=== PATIENT | female | born 2000 | race Caucasian/White ===

== ENCOUNTER 2020-12-14 06:59 | Inpatient (IN) ==
[2020-12-14] MEDS ORDERED: OXYTOCIN 30 UNITS/500 ML BAG IV PRN ×2 (07:12→10:21)
--- NOTE | 2020-12-14 07:27 | History & Physical Report ---
Date of Service December 14, 2020 Assessment & Plan (1) SROM (spontaneous rupture of membranes): (2) with 38 completed weeks gestation: (3) GBS (group B Streptococcus carrier), +RV culture, currently : Plan: Admit. Plan initially to expectantly manage. Fetus category one and reassuring. +PCN for GBS positive. Anticipate . History of Present Illness Chief Complaint: rom and contractions Primary Care Provider: NO PCP Patient is a 20yof at 38 3/7 weeks who presents to labor and delivery compl aining of contractions since 7pm last night and then rom this am. Patient arrives to labor and delivery in a wheelchair sitting in a puddle Looks uncomfortable with contractions. +fm. has been essentially uncomplicated. On anatomy us thickened nuchal fold and left choroid plexus cyst seen. Had MFM consult where cyst was not seen and low risk panorama. Declined amnio. labs--O-/ab-/ri/rprnr/hepb-/hiv-/gc/ct-/cf/sma neg/gtt nl x 2/low risk panorama/gbs + Allergies Allergy/AdvReac Type Severity Reaction Status Date / Time No Known Allergies Allergy Verified 12/12/20 15:15 Home Medications Medication Instructions Recorded Confirmed Type diphenhydramine HCl 50 mg capsule 50 mg PO HS 12/14/20 12/14/20 History ([facility]) prenat.vits,kriss,ilb-suyu-fdlhj 1 tab PO DAILY 12/14/20 12/14/20 History Patient History Medical History Asthma Surgical History S/P excision of lipoma removed from lower lip Family History (Updated 06/03/20 @ 09:00 by Karena Ann) Sister Sickle cell disease Grandfather (Paternal) Diabetes Denies family history of Ovarian cancer Breast cancer Colorectal cancer Social History Smoking Status: Never smoker Hx Alcohol Use: No Hx Substance Use: No Preferred Language: Stateless Communication Ability: Effective 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 noncontributory Physical Exam Constitutional: WD/WN, vitals as above Gastrointestinal (Abdomen): soft, gravid Psychiatric: A+Ox3, euthymic affect Genitourinary: cx--1.5/75/-2 grossly ruptured, probable mec toco--q2-4min efm--category one strip Results & Data ([facility]) Vital Signs (Past 12 Hours) Vital Signs Temp Pulse Resp BP 12/14/20 07:16 37.0 C 85 18 116/70 Code Status & VTE Plan VTE Prophylaxis Plan VTE Prophylaxis will be ordered: No Coding Level of Care Code None Diagnoses SROM (spontaneous rupture of membranes) with 38 completed weeks gestation Z3A.38 GBS (group B Streptococcus carrier), +RV culture, currently O99.820
[2020-12-14] MEDS ORDERED: PENICILLIN G POTASSIUM 6 MU in DEXTROSE 5% 250 ML IV ONE (07:30)
[2020-12-14 07:34] LABS: Hematocrit (blood only) 34.2 % (37-47); Hemoglobin 11.7 g/dL (12.0-16.0); Mean Corpuscular Hemoglobin 29.3 pg (25-34); Mean Corpuscular Hgb Conc 34.2 g/dL (32-36); Mean Corpuscular Volume 85.5 fL (80-100); Mean Platelet Volume 11.1 fL (7.4-10.4); Platelet Count 165 K/uL (130-400); RDW Coefficient of Variation 14.8 % (11.5-14.5); RDW Standard Deviation 45.7 fL (36.4-46.3); White Blood Count 11.35 K/uL (4.8-10.8)
[2020-12-14] MEDS: LACTATED RINGER'S 1,000 ML IV PRN ×5 (08:14→22:39)
--- NOTE | 2020-12-14 11:12 | Labor Progress Brief Note ---
Date of Service December 14, 2020 Subjective Reason For Note: Routine Evaluation Current Pain Level(1-10): 8 Assessment & Plan (1) SROM (spontaneous rupture of membranes): Plan: Cervix unchanged. Will start oxytocin (2) with 38 completed weeks gestation: (3) GBS (group B Streptococcus carrier), +RV culture, currently : Plan: Admit. Plan initially to expectantly manage. Fetus category one and reassuring. +PCN for GBS positive. Anticipate . Admission and Anticipated Discharge Date Admission Date: December 14, 2020 Physical Exam Genitourinary: Manual OB Exam: + cervical dilation (1.5), + cervical effacement 70% and + station -2 OB Exam Monitor Tracing: + external FHT monitor used, + external uterine monitor used, + category I and + normal FHT variability Results & Data ([facility]) Vital Signs (Past 12 Hours) Vital Signs Temp Pulse Resp BP 12/14/20 10:42 36.6 C 70 20 104/61 12/14/20 09:03 36.6 C 12/14/20 07:26 37.0 C 18 12/14/20 07:16 37.0 C 85 18 116/70 Coding Level of Care Code None Diagnoses SROM (spontaneous rupture of membranes) with 38 completed weeks gestation Z3A.38 GBS (group B Streptococcus carrier), +RV culture, currently O99.820
--- NOTE | 2020-12-14 11:15 | Anesthesiology Consultation ---
Date of Service December 14, 2020 Assessment & Plan Chart Review Chart Review: Acceptable Risk for Surgery and Patient NOT seen in Pre Admission Testing Consults Requested none ASA ASA2 Proposed Anesthesia Anesthesia Type: Labor Epidural History Height/Weight Height: 4 ft 11 in Weight: 59.874 kg Allergies Allergy/AdvReac Type Severity Reaction Status Date / Time No Known Allergies Allergy Verified 12/12/20 15:15 Medications Home Medications Medication Instructions Recorded Confirmed Last Taken diphenhydramine HCl 50 mg capsule 50 mg PO HS 12/14/20 12/14/20 12/13/20 ([facility]) prenat.vits,kriss,rji-kwlb-jekfz 1 tab PO DAILY 12/14/20 12/14/20 12/13/20 Active Medications Generic Name Dose Route Start Last Admin Trade Name Freq PRN Reason Stop Dose Admin Lactated Ringer's 1,000 mls @ 125 mls/hr 12/14/20 07:12 12/14/20 08:14 Lr IV 12/16/20 07:11 125 mls/hr .Q8H PRN Administration L&D Protocol Protocol Oxytocin 30 units in 500 mls @ 2 mls/hr 12/14/20 10:21 12/14/20 10:42 Pitocin IV 12/16/20 10:20 0.12 units/hr .Q24H PRN 2 mls/hr Labor Induction/Augmentation Administration Protocol 0.12 UNITS/HR Past Medical History Medical History Asthma Exercise / Class Metabolic Activity II 4-5 Yardwork/Stairs/Walk up hill Past Family History Family History Sister Sickle cell disease Grandfather (Paternal) Diabetes Denies family history of Ovarian cancer Breast cancer Colorectal cancer Past Surgical History Surgical History S/P excision of lipoma removed from lower lip Past Anesthesia History No Hx of Anesthesia Complications and No Family Hx of Anesthesia Complications History of PONV No Hx of PONV and No Hx of Motion Sickness Social History Smoking Status: Never smoker Hx Alcohol Use: No Hx Substance Use: No Physical Exam Vital Signs Last Vital Signs Temp 36.6 C 12/14/20 10:42 Pulse 70 12/14/20 10:42 Resp 20 12/14/20 10:42 BP 104/61 12/14/20 10:42 Testing Laboratory Results 12/14/20 07:26
[2020-12-14] MEDS: PENICILLIN G POTASSIUM 3 MU in DEXTROSE 5% 100 ML IV PRN ×3 (12:16→20:14)
[2020-12-14] MEDS ORDERED: ePHEDrine sulfate 50 MG/ML AMP ONE (12:20)
[2020-12-14] MEDS ORDERED: BUPIVACAINE 0.25% 30 ML VIAL ONE (12:21)
[2020-12-14] MEDS ORDERED: SODIUM CHLORIDE 0.9% INJ 10 ML VIAL ONE (12:21)
[2020-12-14] MEDS ORDERED: fentaNYL citrate 100 MCG/2 ML VIAL ONE (12:21)
[2020-12-14] MEDS ORDERED: fentaNYL 2MCG/ML ROPIVACAINE 1.25MG/ML 100 ML BAG EPI ONE (12:23)
[2020-12-14] MEDS ORDERED: NALBUPHINE HCL INJ 10 MG/ML AMP IV PRN (13:43)
[2020-12-14] MEDS ORDERED: ePHEDrine sulfate 50 MG/ML AMP IV PRN (13:43)
[2020-12-14] MEDS ORDERED: PROMETHAZINE HCL 25 MG in SODIUM CHLORIDE 0.9% 50 ML IV PRN (13:43)
[2020-12-14] MEDS ORDERED: ONDANSETRON INJ 2 MG/ML 2 ML VIAL IV PRN (13:43)
[2020-12-14] MEDS ORDERED: NALOXONE HCL 1 MG in SODIUM CHLORIDE 0.9% 1000ML 1,000 ML IV PRN (13:43)
[2020-12-14] MEDS ORDERED: NALOXONE HCL 0.4 MG/1 ML VIAL/CARP IV PRN (13:43)
[2020-12-14] MEDS ORDERED: diphenhydrAMINE 50 MG/ML VIAL IV PRN (13:43)
--- NOTE | 2020-12-14 14:52 | Labor Progress Brief Note ---
Date of Service December 14, 2020 Subjective Reason For Note: Routine Evaluation Assessment & Plan (1) SROM (spontaneous rupture of membranes): Plan: Progressing. Continue Pitocin. Epidural in place (2) with 38 completed weeks gestation: (3) GBS (group B Streptococcus carrier), +RV culture, currently : (4) Need for rhogam due to Rh negative mother: (5) Supervision of normal first : Admission and Anticipated Discharge Date Admission Date: December 14, 2020 Physical Exam Genitourinary: Manual OB Exam: + cervical dilation 4 cm, + cervical effacement 80%, + station -1 and + amniotic fluid meconium Results & Data ([facility]) Vital Signs (Past 12 Hours) Vital Signs Temp Pulse Resp BP Pulse Ox 12/14/20 14:46 80 131/59 L 12/14/20 14:45 105 H 100 12/14/20 14:40 75 120/57 L 97 12/14/20 14:36 70 106/57 L 12/14/20 14:35 72 99 12/14/20 14:30 83 95/50 L 100 12/14/20 14:26 78 102/56 L 12/14/20 14:25 85 98 12/14/20 14:20 94 H 104/53 L 100 12/14/20 14:16 85 104/51 L 12/14/20 14:15 105 H 100 12/14/20 14:10 94 H 111/55 L 99 12/14/20 14:05 102 H 108/55 L 99 12/14/20 14:00 88 104/58 L 100 12/14/20 13:55 92 H 100 12/14/20 13:53 103 H 100/57 L 12/14/20 13:51 79 105/57 L 12/14/20 13:50 98 H 100 12/14/20 13:49 75 112/62 12/14/20 13:47 85 102/59 L 12/14/20 13:45 83 98/54 L 100 12/14/20 13:44 81 103/56 L 12/14/20 13:41 81 97/54 L 12/14/20 13:40 88 113/53 L 100 12/14/20 13:35 85 111/64 100 12/14/20 13:33 74 114/57 L 12/14/20 13:32 71 118/62 08/04/21 13:30 80 100 12/14/20 13:29 72 98/59 L 12/14/20 13:27 92 H 106/62 12/14/20 13:25 87 100 12/14/20 13:20 89 100 12/14/20 13:15 86 100 12/14/20 13:10 76 100 12/14/20 13:05 87 100 12/14/20 13:00 90 100 12/14/20 12:55 104 H 100 12/14/20 12:50 75 100 12/14/20 12:49 36.5 C 67 20 125/76 12/14/20 12:45 76 100 12/14/20 12:40 72 99 12/14/20 11:35 68 18 109/67 12/14/20 10:42 36.6 C 70 20 104/61 12/14/20 09:03 36.6 C 12/14/20 07:26 37.0 C 18 12/14/20 07:16 37.0 C 85 18 116/70 Coding Level of Care Code None Diagnoses SROM (spontaneous rupture of membranes) with 38 completed weeks gestation Z3A.38 GBS (group B Streptococcus carrier), +RV culture, currently O99.820 Need for rhogam due to Rh negative mother Z29.13 Supervision of normal first Z34.00
--- NOTE | 2020-12-14 18:03 | Labor Progress Brief Note ---
Date of Service December 14, 2020 Subjective Reason For Note: Routine Evaluation Assessment & Plan (1) SROM (spontaneous rupture of membranes): Plan: Progressing. Continue Pitocin. Epidural in place, IUPC placed for dysfunctional contraction pattern. (2) with 38 completed weeks gestation: (3) GBS (group B Streptococcus carrier), +RV culture, currently : (4) Need for rhogam due to Rh negative mother: (5) Supervision of normal first : Admission and Anticipated Discharge Date Admission Date: December 14, 2020 Physical Exam Genitourinary: Manual OB Exam: + cervical dilation 6 cm, + cervical effacement 90%, + station 0 and + amniotic fluid meconium IUPC placed Results & Data ([facility]) Vital Signs (Past 12 Hours) Vital Signs Temp Pulse Resp BP Pulse Ox 12/14/20 17:55 73 100 12/14/20 17:50 73 100 12/14/20 17:45 72 100 12/14/20 17:42 64 105/64 12/14/20 17:40 63 100 12/14/20 17:35 69 100 12/14/20 17:30 71 100 12/14/20 17:27 69 110/64 12/14/20 17:25 68 100 12/14/20 17:20 70 100 12/14/20 17:15 70 100 12/14/20 17:11 72 125/58 L 12/14/20 17:10 74 100 12/14/20 17:05 67 100 12/14/20 17:00 108 H 100 12/14/20 16:57 68 109/60 12/14/20 16:55 72 100 12/14/20 16:50 72 100 12/14/20 16:45 80 100 12/14/20 16:42 73 109/61 12/14/20 16:40 65 100 12/14/20 16:35 76 100 12/14/20 16:30 76 100 12/14/20 16:26 36.8 C 77 20 108/62 12/14/20 16:25 82 100 12/14/20 16:20 69 100 12/14/20 16:15 64 100 12/14/20 16:12 66 123/56 L 12/14/20 16:10 65 99 12/14/20 16:05 66 99 12/14/20 16:00 67 100 12/14/20 15:58 74 18 110/62 12/14/20 15:55 66 99 12/14/20 15:50 69 100 12/14/20 15:45 72 99 12/14/20 15:42 69 116/63 12/14/20 15:40 70 99 12/14/20 15:35 68 99 12/14/20 15:30 68 98 12/14/20 15:27 69 114/60 12/14/20 15:25 66 98 12/14/20 15:20 73 99 12/14/20 15:18 93 H 18 143/92 H 12/14/20 15:15 74 100 12/14/20 15:10 84 100 12/14/20 15:05 73 100 12/14/20 15:00 36.6 C 82 18 100 12/14/20 14:56 36.6 C 16 12/14/20 14:55 72 134/63 100 12/14/20 14:50 79 106/58 L 100 12/14/20 14:46 80 131/59 L 12/14/20 14:45 105 H 100 12/14/20 14:40 75 120/57 L 97 12/14/20 14:36 70 106/57 L 12/14/20 14:35 72 99 12/14/20 14:30 83 18 95/50 L 100 12/14/20 14:26 78 102/56 L 12/14/20 14:25 85 98 12/14/20 14:20 94 H 104/53 L 100 12/14/20 14:16 85 104/51 L 12/14/20 14:15 105 H 100 12/14/20 14:10 94 H 111/55 L 99 12/14/20 14:05 102 H 18 108/55 L 99 12/14/20 14:00 88 18 104/58 L 100 12/14/20 13:55 92 H 100 12/14/20 13:53 103 H 100/57 L 12/14/20 13:51 79 105/57 L 12/14/20 13:50 98 H 100 12/14/20 13:49 75 18 112/62 12/14/20 13:47 85 18 102/59 L 12/14/20 13:45 83 18 98/54 L 100 12/14/20 13:44 81 18 103/56 L 12/14/20 13:41 81 18 97/54 L 12/14/20 13:40 88 18 113/53 L 100 12/14/20 13:35 85 18 111/64 100 12/14/20 13:33 74 18 114/57 L 12/14/20 13:32 71 18 118/62 12/14/20 13:30 80 100 12/14/20 13:29 72 18 98/59 L 12/14/20 13:27 92 H 18 106/62 12/14/20 13:25 87 100 12/14/20 13:20 89 100 12/14/20 13:15 86 100 12/14/20 13:10 76 100 12/14/20 13:05 87 100 12/14/20 13:00 90 100 12/14/20 12:55 104 H 100 12/14/20 12:50 75 100 12/14/20 12:49 36.5 C 67 20 125/76 12/14/20 12:45 76 100 12/14/20 12:40 72 99 12/14/20 11:35 68 18 109/67 12/14/20 10:42 36.6 C 70 20 104/61 12/14/20 09:03 36.6 C 12/14/20 07:26 37.0 C 18 12/14/20 07:16 37.0 C 85 18 116/70 Coding Level of Care Code None Diagnoses SROM (spontaneous rupture of membranes) with 38 completed weeks gestation Z3A.38 GBS (group B Streptococcus carrier), +RV culture, currently O99.820 Need for rhogam due to Rh negative mother Z29.13 Supervision of normal first Z34.00
[2020-12-14] MEDS: fentaNYL 2MCG/ML ROPIVACAINE 1.25MG/ML 100 ML BAG EPI PRN (21:54)
--- NOTE | 2020-12-14 22:36 | Labor Progress Brief Note ---
Date of Service December 14, 2020 Subjective Reason For Note: Routine Evaluation Pitocin d/denisse for 3-4 min decel in to the 90s. Has recovered. Cat 1 with periods of cat 2 prior. Assessment & Plan (1) SROM (spontaneous rupture of membranes): Plan: Progressing, Pitocin D/denisse for 3-4 decel. Has recovered and will continue to monitor. (2) with 38 completed weeks gestation: (3) GBS (group B Streptococcus carrier), +RV culture, currently : (4) Encounter for anatomic survey: Admission and Anticipated Discharge Date Admission Date: December 14, 2020 Physical Exam Genitourinary: Manual OB Exam: + cervical dilation 8 cm, + cervical effacement 90%, + station 0 and + amniotic fluid meconium Results & Data ([facility]) Vital Signs (Past 12 Hours) Vital Signs Temp Pulse Resp BP Pulse Ox 12/14/20 22:30 94 H 100 12/14/20 22:26 81 115/57 L 12/14/20 22:25 86 100 12/14/20 22:20 87 100 12/14/20 22:15 94 H 99 12/14/20 22:12 89 130/60 12/14/20 22:10 98 H 100 12/14/20 22:05 84 98 12/14/20 22:00 84 100 12/14/20 21:57 82 113/61 12/14/20 21:55 87 100 12/14/20 21:50 84 100 12/14/20 21:45 81 100 12/14/20 21:42 89 97/57 L 12/14/20 21:40 87 100 12/14/20 21:35 87 100 12/14/20 21:30 90 100 12/14/20 21:26 81 101/57 L 12/14/20 21:25 79 100 12/14/20 21:20 75 100 12/14/20 21:15 89 100 12/14/20 21:12 79 98/59 L 12/14/20 21:10 78 100 12/14/20 21:05 87 100 12/14/20 21:00 36.7 C 103 H 18 100 12/14/20 20:56 90 118/67 12/14/20 20:55 90 100 12/14/20 20:50 105 H 100 12/14/20 20:45 81 100 12/14/20 20:41 101 H 115/66 12/14/20 20:40 89 100 12/14/20 20:35 139 H 100 12/14/20 20:30 79 100 12/14/20 20:26 84 112/59 L 12/14/20 20:25 97 H 100 12/14/20 20:20 95 H 100 12/14/20 20:15 115 H 100 12/14/20 20:12 86 109/70 12/14/20 20:10 102 H 100 12/14/20 20:05 79 100 12/14/20 20:00 80 100 12/14/20 19:58 68 109/64 12/14/20 19:55 97 H 100 12/14/20 19:50 86 100 12/14/20 19:45 75 100 12/14/20 19:41 72 117/67 12/14/20 19:40 72 100 12/14/20 19:35 72 100 12/14/20 19:30 97 H 100 12/14/20 19:27 81 109/67 12/14/20 19:25 78 100 12/14/20 19:20 88 100 12/14/20 19:15 86 98 12/14/20 19:12 118 H 116/57 L 12/14/20 19:10 123 H 100 12/14/20 19:05 36.7 C 76 18 100 12/14/20 19:00 76 100 12/14/20 18:56 84 100/60 12/14/20 18:55 70 100 12/14/20 18:50 76 100 12/14/20 18:45 77 100 12/14/20 18:42 76 108/58 L 12/14/20 18:40 71 100 12/14/20 18:35 72 100 12/14/20 18:30 69 100 12/14/20 18:27 68 106/61 12/14/20 18:25 77 100 12/14/20 18:20 73 100 12/14/20 18:15 71 100 12/14/20 18:11 72 103/56 L 12/14/20 18:10 69 100 12/14/20 18:05 73 100 12/14/20 18:02 72 101/52 L 12/14/20 18:00 75 100 12/14/20 17:55 73 100 12/14/20 17:50 73 100 12/14/20 17:45 72 100 12/14/20 17:42 64 105/64 12/14/20 17:40 63 100 12/14/20 17:35 69 100 12/14/20 17:30 71 100 12/14/20 17:27 69 110/64 12/14/20 17:25 68 100 12/14/20 17:20 70 100 12/14/20 17:15 70 100 12/14/20 17:11 72 125/58 L 12/14/20 17:10 74 100 12/14/20 17:05 67 100 12/14/20 17:00 108 H 100 12/14/20 16:57 68 109/60 12/14/20 16:55 72 100 12/14/20 16:50 72 100 12/14/20 16:45 80 100 12/14/20 16:42 73 109/61 12/14/20 16:40 65 100 12/14/20 16:35 76 100 12/14/20 16:30 76 100 12/14/20 16:26 36.8 C 77 20 108/62 12/14/20 16:25 82 100 12/14/20 16:20 69 100 12/14/20 16:15 64 100 12/14/20 16:12 66 123/56 L 12/14/20 16:10 65 99 12/14/20 16:05 66 99 12/14/20 16:00 67 100 12/14/20 15:58 74 18 110/62 12/14/20 15:55 66 99 12/14/20 15:50 69 100 12/14/20 15:45 72 99 12/14/20 15:42 69 116/63 12/14/20 15:40 70 99 12/14/20 15:35 68 99 12/14/20 15:30 68 98 12/14/20 15:27 69 114/60 12/14/20 15:25 66 98 12/14/20 15:20 73 99 12/14/20 15:18 93 H 18 143/92 H 12/14/20 15:15 74 100 12/14/20 15:10 84 100 12/14/20 15:05 73 100 12/14/20 15:00 36.6 C 82 18 100 12/14/20 14:56 36.6 C 16 12/14/20 14:55 72 134/63 100 12/14/20 14:50 79 106/58 L 100 12/14/20 14:46 80 131/59 L 12/14/20 14:45 105 H 100 12/14/20 14:40 75 120/57 L 97 12/14/20 14:36 70 106/57 L 12/14/20 14:35 72 99 12/14/20 14:30 83 18 95/50 L 100 12/14/20 14:26 78 102/56 L 12/14/20 14:25 85 98 12/14/20 14:20 94 H 104/53 L 100 12/14/20 14:16 85 104/51 L 12/14/20 14:15 105 H 100 12/14/20 14:10 94 H 111/55 L 99 12/14/20 14:05 102 H 18 108/55 L 99 12/14/20 14:00 88 18 104/58 L 100 12/14/20 13:55 92 H 100 12/14/20 13:53 103 H 100/57 L 12/14/20 13:51 79 105/57 L 12/14/20 13:50 98 H 100 12/14/20 13:49 75 18 112/62 12/14/20 13:47 85 18 102/59 L 12/14/20 13:45 83 18 98/54 L 100 12/14/20 13:44 81 18 103/56 L 12/14/20 13:41 81 18 97/54 L 12/14/20 13:40 88 18 113/53 L 100 12/14/20 13:35 85 18 111/64 100 12/14/20 13:33 74 18 114/57 L 12/14/20 13:32 71 18 118/62 12/14/20 13:30 80 100 12/14/20 13:29 72 18 98/59 L 12/14/20 13:27 92 H 18 106/62 12/14/20 13:25 87 100 12/14/20 13:20 89 100 12/14/20 13:15 86 100 12/14/20 13:10 76 100 12/14/20 13:05 87 100 12/14/20 13:00 90 100 12/14/20 12:55 104 H 100 12/14/20 12:50 75 100 12/14/20 12:49 36.5 C 67 20 125/76 12/14/20 12:45 76 100 12/14/20 12:40 72 99 12/14/20 11:35 68 18 109/67 12/14/20 10:42 36.6 C 70 20 104/61 Coding Level of Care Code None Diagnoses SROM (spontaneous rupture of membranes) with 38 completed weeks gestation Z3A.38 GBS (group B Streptococcus carrier), +RV culture, currently O99.820 Encounter for anatomic survey Z36.89
[2020-12-15] MEDS: PENICILLIN G POTASSIUM 3 MU in DEXTROSE 5% 100 ML IV PRN ×3 (00:04→07:55)
[2020-12-15] MEDS: fentaNYL 2MCG/ML ROPIVACAINE 1.25MG/ML 100 ML BAG EPI PRN (04:28)
[2020-12-15] MEDS: LACTATED RINGER'S 1,000 ML IV PRN (06:46)
--- NOTE | 2020-12-15 09:16 | Delivery Summary ---
Vaginal Delivery Summary Date of Service December 15, 2020 Vaginal Delivery Summary PREOPERATIVE DIAGNOSIS: 1. Single intrauterine at 38 4/7 wga 2. Spontaneous rupture of membranes 3. GBS+ POSTOPERATIVE DIAGNOSIS: 1. Single intrauterine at 38 4/7 wga 2. Spontaneous rupture of membranes 3. GBS+ 4. Delivered PROCEDURE: 1. Normal spontaneous vaginal delivery. SURGEON: Mara Qureshi MD ANESTHESIA: Epidural. ESTIMATED BLOOD LOSS: 300 mL FLUIDS: Continuous LR. URINE OUTPUT: None. COMPLICATIONS: Shoulder dystocia CONDITION: Stable. INDICATIONS: 20 y/o G1 at 38 4/7 wga presented yesterday morning w/ complaints of LOF and found to be ruptured. She was expectantly managed initially but did not make change and so was started on pitocin. She received penicillin for GBS+ status. She received an epidural for pain control. Overnight pitocin had to be stopped intermittently due to tachysystole however continued to progress until she was complete. Pitocin was restarted when she began pushing and fetus tolerated it well FINDINGS: A viable male with Apgars of 8 and 9 at 1 and 5 minutes respectively. SPECIMEN: Cord gases, cord blood OPERATIVE REPORT: The patient progressed to 10 cm, 100% effaced and +2 station, pushed over intact perineum with anesthesia to deliver a viable male , Apgars as above. Head of delivered in CATHY position. No nuchal cord was present. Body and shoulders did not deliver with gentle downward traction of the shoulder and dystocia was called. Head of bed was laid down and legs were placed into Lory position. Suprapubic pressure was applied and shoulder did then deliver spontaneously with remainder of body delivering easily. was initially stunned but became vigorous and so delivered to maternal abdomen and nursing staff. Cord was clamped and cut. Cord segment for gases and blood were obtained. Placenta delivered spontaneously intact with 3-vessel cord. IV oxytocin and fundal massage were given for excellent hemostasis. Vagina, cervix, perineum, and placenta were inspected. A right vaginal and a periurethral laceration were noted and repaired in the usual fashion using 3-0 and 4-0 vicryl respectively. There was excellent hemostasis. Sponge and needle counts correct x2. No sponges were left behind. Mother and stable in immediate period. [facility] [place] Delivery Charge Vaginal Delivery Codes: 89995 global code for the antepartum, delivery, and post- Delivery Type Details:
[2020-12-15] MEDS ORDERED: HYDROCORTISONE ACETATE 25 MG SUPP PR PRN (09:32)
[2020-12-15] MEDS ORDERED: DIPHTHERIA/TETANUS/PERTUSSIS 0.5 ML SYR/VIAL IM ONE (09:32)
[2020-12-15] MEDS ORDERED: SUPERCREAM 0.870% 15 GM JAR EXT PRN (09:32)
[2020-12-15] MEDS ORDERED: BENZOCAINE 20% AER SPR 82.5 GM CAN EXT PRN (09:32)
[2020-12-15] MEDS ORDERED: OXYTOCIN 30 UNITS/500 ML BAG IV PRN (09:32)
[2020-12-15] MEDS ORDERED: ACETAMINOPHEN 325 MG TAB PO PRN (09:32)
[2020-12-15] MEDS ORDERED: bisacodyL 10 MG SUPP PR PRN (09:32)
--- NOTE | 2020-12-15 11:15 | Anesthesia Procedure Note ---
Date of Service December 15, 2020 Anesthesia Post Epidural Note Vital Signs Vital Signs: Temp Pulse Resp BP Pulse Ox 98.8 F 94 H 18 125/58 L 100 12/15/20 05:04 12/15/20 10:58 12/15/20 05:04 12/15/20 10:58 12/15/20 09:10 Pain Intensity Back: Pain Intensity: 10 Notes Mental Status: alert / awake / arousable and participated in evaluation Nausea / Vomiting: adequately controlled Pain: adequately controlled Airway Patency, RR, SpO2: stable & adequate BP & HR: stable & adequate Hydration State: stable & adequate Neuraxial Anesthesia: was administered and sensory block is resolving Anesthetic Complications: no major complications apparent and Pt Satisfied with anesthetic care Epidural: Removed without complications and With tip intact
[2020-12-15] MEDS: IBUPROFEN 600 MG TAB PO PRN ×2 (19:53→23:47)
[2020-12-15] MEDS: DOCUSATE SODIUM 100 MG CAP PO SCH (20:23)
--- NOTE | 2020-12-16 07:04 | Obstetrical Progress Note ---
Date of Service <Melita Seymour DO - Last Filed: 12/16/20 07:04> December 16, 2020 Assessment & Plan <Melita Seymour DO - Last Filed: 12/16/20 07:04> (1) Encounter for care and examination after delivery: 20 yo post op day1 from [facility] , doing well. -Continue routine post care. -vital signs reviewed and WNL (Tmax 36.8) -Blood Type O- given rhogam 10/03/20, GBS+, Rubella immune -Encourage ambulation, monitor and control pain with Motrin, Percocet PRN, resume regular diet, monitor lochia -encourage bottle feeding post breast pump -hemoglobin 11.7 (8/4) -discussed d/c Day #:: 1 <Mara Qureshi MD - Last Filed: 12/16/20 07:29> (1) Encounter for care and examination after delivery: Subjective <Melita Seymour DO - Last Filed: 12/16/20 07:04> Ambulation: ambulating normally Voiding: no voiding problems Passing Gas:: Yes (no stool yet) Diet Tolerance:: regular diet Lochia:: Moderate Feeding Type:: bottle feeding (after breast pump) Current Pain Level(1-10): 5 (has contractions during breast feeding at 10, pain currently controlled on medication) Review of Systems Denies fever, chills, sweats Denies shortness of breath, difficulty breathing, chest pain, palpitations, chest pressure. Denies breast pain. Denies dysuria. Denies headache or changes in vision. Physical Exam <DO David Barone Last Filed: 12/16/20 07:04> General: Alert, oriented. No acute distress. Cardiac: Regular rate and rhythm, no murmurs/rubs/gallops. Respiratory: Clear to auscultation bilaterally a/p, no wheezes/rales/rhonchi. No increased work of breathing. Symmetrical chest rise. No respiratory distress. Abdomen: Soft, nontender, nondistended. Bowel sounds present. Uterus: Uterine fundus firm, palpable at umbilicus. Lower Extremities: No lower extremity edema or swelling. No deep calf pain. Marcel's negative bilaterally.. Results & Data ([facility]) <Melita Dong, DO - Last Filed: 12/16/20 07:04> Vital Signs (Past 12 Hours) Vital Signs Temp Pulse Resp BP Pulse Ox 12/16/20 03:21 36.8 C 87 16 101/65 93 12/15/20 23:55 36.7 C 75 17 106/71 100 12/15/20 23:14 36.8 C 66 16 106/68 100 12/15/20 19:45 37.1 C 108 H 18 111/67 Medications Administered Current Inpatient Medications Acetaminophen (Acetaminophen 325 Mg Tab) 650 mg PO Q6H PRN PRN Reason: Pain/MCQUEEN/Fever Stop: 01/14/21 09:31 Benzocaine (Benzocaine 20% Aer Spr 82.5 Gm Can) 1 appln EXT PRN PRN PRN Reason: Perineal Discomfort Stop: 01/14/21 09:31 Last Admin: 12/15/20 14:21 Dose: 82.5 appln Documented by: Bisacodyl (Bisacodyl 5 Mg Tabec) 5 mg PO 1999 [facility] Stop: 12/16/20 20:01 Bisacodyl (Bisacodyl 10 Mg Supp) 10 mg [place] DAILY PRN PRN Reason: No BM on 2nd post- day Stop: 01/14/21 09:31 Cocaine HCl (Supercream 0.870% 15 Gm Jar) 1 gm EXT BID PRN PRN Reason: Hemorrhoidal Inflammation Stop: 12/29/20 09:31 Docusate Sodium (Docusate Sodium 100 Mg Cap) 100 mg PO DAILY@ [facility] Stop: 01/14/21 20:59 Last Admin: 12/15/20 20:23 Dose: 100 mg Documented by: Hydrocortisone (Hydrocortisone Acetate 25 Mg Supp) 25 mg [place] BID PRN PRN Reason: Hemorrhoidal Inflammation Stop: 01/14/21 09:31 Oxytocin (Pitocin) 30 units in 500 mls @ 333.333 mls/hr IV .Q1H30M PRN; Protocol PRN Reason: Bleeding Control Stop: 01/14/21 09:31 Ibuprofen (Ibuprofen 600 Mg Tab) 600 mg PO Q4H PRN PRN Reason: Pain/MCQUEEN/Cramping/Fever Stop: 01/14/21 09:31 Last Admin: 12/15/20 23:47 Dose: 600 mg Documented by: Janiat Multivit/Benzene Washer/Iron/Folic Ac ( Vitamin 1 Tab) 1 tab PO DAILY@08 [facility] Stop: 01/15/21 07:59 <Mara Qureshi MD - Last Filed: 12/16/20 07:29> Co-Signing Physician Notes Resident Physician Supervision Note: I interviewed and examined the patient. Discussed with Dr. Seymour and agree with findings and plan as documented in the note. Any exceptions or clarifications are listed here: PP1 s/p , doing well. VSS, exam benign and wnl. Desires d/c home, meeting all pp milestones. Ok for dc pending peds Documented By: Mara Qureshi MD Resident Activity Tracking <Melita Seymour DO - Last Filed: 12/16/20 07:04> Resident Involvement: Resident Care Provided Care Provided: OB Delivery
[2020-12-16 07:29] LABS: Hematocrit (blood only) 28.3 % (37-47); Hemoglobin 9.8 g/dL (12.0-16.0); Mean Corpuscular Hemoglobin 29.3 pg (25-34); Mean Corpuscular Hgb Conc 34.6 g/dL (32-36); Mean Corpuscular Volume 84.5 fL (80-100); Mean Platelet Volume 11.9 fL (7.4-10.4); Platelet Count 190 K/uL (130-400); RDW Coefficient of Variation 15.1 % (11.5-14.5); RDW Standard Deviation 46.9 fL (36.4-46.3); Red Blood Count 3.35 M/uL (4.2-5.4); White Blood Count 16.23 K/uL (4.8-10.8)
[2020-12-16] MEDS: PRENATAL VITAMIN 1 TAB PO SCH (08:50)
[2020-12-16] MEDS: DOCUSATE SODIUM 100 MG CAP PO SCH ×2 (08:50→19:07)
[2020-12-16] MEDS: FERROUS SULFATE 325 MG TAB PO SCH (08:50)
[2020-12-16] MEDS: IBUPROFEN 600 MG TAB PO PRN ×2 (08:50→19:07)
[2020-12-16] MEDS ORDERED: bisacodyL 5 MG TABEC PO SCH (20:00)
[2020-12-17] MEDS: IBUPROFEN 600 MG TAB PO PRN ×2 (00:14→08:50)
[2020-12-17 06:43] LABS: Hematocrit (blood only) 28.7 % (37-47); Hemoglobin 9.8 g/dL (12.0-16.0)
--- NOTE | 2020-12-17 07:54 | Obstetrical Progress Note ---
Date of Service <Melita Seymour - Last Filed: 12/17/20 07:54> December 17, 2020 Assessment & Plan <Melita Seymour - Last Filed: 12/17/20 07:54> (1) Encounter for care and examination after delivery: 20 yo post op day2 from [facility] , doing well. -Continue routine post care. -vital signs reviewed and WNL (Tmax 36.9) -Blood Type O- given rhogam 10/03/20, GBS+, Rubella immune -Encourage ambulation, monitor and control pain with Motrin, Percocet PRN, resume regular diet, monitor lochia -encourage bottle feeding post breast pump -hemoglobin 9.8 Day #:: 2 <Manjula Brito MD, FACOG - Last Filed: 12/17/20 08:49> (1) Encounter for care and examination after delivery: Subjective <Melita Seymour - Last Filed: 12/17/20 07:54> Ambulation: ambulating normally Voiding: no voiding problems Passing Gas:: Yes Diet Tolerance:: regular diet Lochia:: Small Feeding Type:: breast feeding Current Pain Level(1-10): 7 Review of Systems Denies fever, chills, sweats Denies shortness of breath, difficulty breathing, chest pain, palpitations, chest pressure. Denies breast pain. Denies dysuria. Denies headache or changes in vision. Physical Exam <Melita Seymour - Last Filed: 12/17/20 07:54> General: Alert, oriented. No acute distress. Cardiac: Regular rate and rhythm, no murmurs/rubs/gallops. Respiratory: Clear to auscultation bilaterally a/p, no wheezes/rales/rhonchi. No increased work of breathing. Symmetrical chest rise. No respiratory distress. Abdomen: Soft, nontender, nondistended. Bowel sounds present. Uterus: Uterine fundus firm, palpable at umbilicus. Lower Extremities: No lower extremity edema or swelling. No deep calf pain. Marcel's negative bilaterally.. Results & Data ([facility]) <Melita SeymourDO - Last Filed: 12/17/20 07:54> Vital Signs (Past 12 Hours) Vital Signs Temp Pulse Resp BP 12/17/20 00:10 36.9 C 65 16 115/78 Laboratory Results 12/17/20 12/16/20 Range/Units 06:09 06:42 Hgb 9.8 L (12.0-16.0) g/dL Hct 28.7 L (37-47) % Blood Type O Negative Antibody Screen NEGATIVE Screen Negative (Negative) Medications Administered Current Inpatient Medications Acetaminophen (Acetaminophen 325 Mg Tab) 650 mg PO Q6H PRN PRN Reason: Pain/MCQUEEN/Fever Stop: 01/14/21 09:31 Benzocaine (Benzocaine 20% Aer Spr 82.5 Gm Can) 1 appln EXT PRN PRN PRN Reason: Perineal Discomfort Stop: 01/14/21 09:31 Last Admin: 12/15/20 14:21 Dose: 82.5 appln Documented by: Bisacodyl (Bisacodyl 10 Mg Supp) 10 mg MS DAILY PRN PRN Reason: No BM on 2nd post- day Stop: 01/14/21 09:31 Cocaine HCl (Supercream 0.870% 15 Gm Jar) 1 gm EXT BID PRN PRN Reason: Hemorrhoidal Inflammation Stop: 12/29/20 09:31 Docusate Sodium (Docusate Sodium 100 Mg Cap) 100 mg PO DAILY@ [facility] Stop: 01/14/21 20:59 Last Admin: 12/16/20 19:07 Dose: 100 mg Documented by: Ferrous Sulfate (Ferrous Sulfate 325 Mg Tab) 325 mg PO QAM [facility] Stop: 01/15/21 08:59 Last Admin: 12/16/20 08:50 Dose: 325 mg Documented by: Hydrocortisone (Hydrocortisone Acetate 25 Mg Supp) 25 mg MS BID PRN PRN Reason: Hemorrhoidal Inflammation Stop: 01/14/21 09:31 Oxytocin (Pitocin) 30 units in 500 mls @ 333.333 mls/hr IV .Q1H30M PRN; Protocol PRN Reason: Bleeding Control Stop: 01/14/21 09:31 Ibuprofen (Ibuprofen 600 Mg Tab) 600 mg PO Q4H PRN PRN Reason: Pain/MCQUEEN/Cramping/Fever Stop: 01/14/21 09:31 Last Admin: 12/17/20 00:14 Dose: 600 mg Documented by: Prenat Multivit/Stites/Iron/Folic Ac ( Vitamin 1 Tab) 1 tab PO DAILY@08 [facility] Stop: 01/15/21 07:59 Last Admin: 12/16/20 08:50 Dose: 1 tab Documented by: <Manjula Brito MD, FACOG - Last Filed: 12/17/20 08:49> Co-Signing Physician Notes Resident Physician Supervision Note: I was present with Dr. Seymour during the history and exam. I discussed the case with the resident and agree with the findings and plan as documented in the note. Any exceptions or clarifications are listed here: stable, routine care. eating voiding ambulating without problem. had rhogam. abd soft ff at u, nt, ext nt calves. instructions reviewed. f/u 6 wks pp. bottle and breast pumping. c/o leg stiffness and shoulder stiffness, swelling. reassured. s/sx and parameters to call reviewed. Documented By: Manjula Brito MD, FACOG Resident Activity Tracking <Melita Seymour DO - Last Filed: 12/17/20 07:54> Resident Involvement: Resident Care Provided Care Provided: OB Delivery
[2020-12-17] MEDS: FERROUS SULFATE 325 MG TAB PO SCH (08:50)
[2020-12-17] MEDS: DOCUSATE SODIUM 100 MG CAP PO SCH (08:50)
[2020-12-17] MEDS: PRENATAL VITAMIN 1 TAB PO SCH (08:50)
== END 2020-12-17 11:40 | disposition home or self-care (01) | DRG 807 ==
LOC: OPB 06:59 → 4S1 07:06 → 4S2 12-15 12:54

== ENCOUNTER 2022-09-18 18:00 | Inpatient (IN) ==
[2022-09-18] MEDS ORDERED: OXYTOCIN 30 UNITS/500 ML BAG IV PRN ×2 (18:10→19:16)
[2022-09-18] MEDS ORDERED: LIDOCAINE 1% LOCAL 20 ML VIAL INFIL PRN (18:10)
--- NOTE | 2022-09-18 18:19 | History & Physical Report ---
Date of Service September 18, 2022 Assessment & Plan (1) Encounter for supervision of normal in multigravida: Plan: Priyanka is a 22-year-old presents for induction of labor secondary to worsening critical Anti-D antibody titers. findings were discussed with MFM earlier today who recommended delivery today. 1. Fetus: Cat 1 2. Labor: Will start oxytocin and will AROM when able. 3. vitals within normal limits. 4. GBS unknown in pre term. History of prior GBS positive. Will treat with penicillin. GBS swab collected (2) Maternal care for other isoimmunization, unspecified trimester, not applicable or unspecified: Admission and Anticipated Discharge Date Admission Date: September 18, 2022 History of Present Illness Primary Care Provider: Nidhi Marielarui Mathew is a 22-year-old currently at 36 weeks 3 days gestational age presents for induction of labor secondary to anti-D antibody positive with increasing critical level titers. MFM was contacted earlier today to discussed the increasing critical antibody titers. M recommended delivery. Patient is denying regular contractions leakage of fluid or vaginal bleeding is reporting good movement. complications: Hx Shoulder Dystocia Asthma Need for Rhogam d/t Rh negative mother - Rhogam given 07/30/22- MK Flu shot given 03/16/22 - AL Anti D Antibody *Recommend testing FOB FOB is O positive *MFM consult (05/22/22 @ [facility] [place]) *check Titers Q 4wks titer 32 on 07/05/22- to [facility] for recs MCA dopplers Q2wks at [facility] [place] twice weekly NST/DVP's delivery between 37-38w6d if critical titers but normal MCA dopplers.IOL - 09/25 OB Labs: Blood Type O Negative 03/16/22 Antibody Screen POSITIVE A 07/30/22 Hemoglobin 10.1 g/dl (12.0-16.0) L 07/30/22 Hematocrit 29.7 % (37.0-47.0) L 07/30/22 Mean Corpuscular Volume 81.3 fL (80.0-100.0) 03/16/22 Platelet Count 285 K/uL (130-400) 03/16/22 Rubella IgG Antibody Immune (Immune) 03/16/22 A Rapid Plasma Reagin Nonreactive (Nonreactive) 03/16/22 Hepatitis B Surface Antigen Neg (Neg) 06/07/20 Hepatitis B Surface Antigen. NON-REACTIVE (NON-REACTIVE) 03/16/22 Hepatitis C Antibody (EIA) NON-REACTIVE (NON-REACTIVE) 03/16/22 HIV (1&2) Ab and P24 Ag, 4th Gener Neg (Neg) 06/07/20 HIV (1&2) Ag and Ab Confirmation NON-REACTIVE (NON-REACTIVE) 03/16/22 Glucose 1 Hour 50 gm Load 98 mg/dl (70-130) 07/30/22 OB Optional Labs: Chlamydia trachomatis RNA Not Detected (NotDetected) 03/16/22 Neisseria gonorrhoeae RNA Not Detected (NotDetected) 03/16/22 Labs Reviewed: cf/sma neg 2020 - sln Allergies Allergy/AdvReac Type Severity Reaction Status Date / Time No Known Allergies Allergy Verified 09/18/22 16:32 Home Medications Medication Instructions Recorded Confirmed Type prenat.vits,kriss,[id number] 1 tab PO DAILY 12/14/20 09/18/22 History albuterol sulfate 90 mcg/actuation 1 inh inhalation ONCE 03/16/22 09/18/22 History aerosol inhaler metoclopramide HCl 5 mg tablet 5 mg PO Q6H PRN nausea and 03/16/22 09/18/22 Rx (Reglan) vomiting #30 tabs breast pump #1 ea 07/30/22 09/18/22 Rx Patient History Medical History Asthma Surgical History S/P excision of lipoma Family History (Updated 03/16/22 @ 14:54 by Mara Qureshi MD) Sister Sickle cell disease Half sister, pt notes it comes from her half sister's mom's side (pt and sister are related through dad) Grandfather (Paternal) Diabetes Denies family history of Ovarian cancer Breast cancer Colorectal cancer Social History (Updated 03/02/22 @ 13:06 by Karena Ann) Smoking Status: Never smoker Do You Dip or Chew Tobacco: No; Hx Alcohol Use: No Hx Substance Use: No Preferred Language: Sinhala Communication Ability: Effective [employer] Services Required: No Beliefs That Will Affect Care: None marital status: Single marital status details: Fob Nelson Lazar (23) [phone] Current Living Situation: Family and Significant Other Current Living Situation Comment: fiance, son, and brother current occupational status: unemployed current occupation: looking for work Other Information That Helps Us Care for You: No Feels Safe at Home: No Is there a partner from a previous relationship who is making you feel unsafe now?: No Any Concerns about Your Family Situation: No Would You Like to Speak to Someone About Your Situation: No Safety Concerns: Feels Safe At This Time Assistive Devices: Glasses Physical Exam Respiratory: normal respiratory effort; no respiratory distress, no labored breathing and no retractions Cardiovascular: Rate/Rhythm: regular rate Genitourinary: OB Exam Abdomen: + vertex ( by ultrasound) Manual OB Exam: + cervical dilation (1.5), + cervical effacement 50% and + station -2 OB Exam Monitor Tracing: + external FHT monitor used, + external uterine monitor used, + category I and + normal FHT variability; no early decelerations present, no late decelerations present and no variable decelerations Coding Level of Care Code None Diagnoses Encounter for supervision of normal in multigravida Z34.80 Maternal care for other isoimmunization, unspecified trimester, not applicable or unspecified O36.1990
[2022-09-18] MEDS ORDERED: PENICILLIN G POTASSIUM 6 MU in DEXTROSE 5% 250 ML IV ONE (18:30)
[2022-09-18 19:14] LABS: Hematocrit (blood only) 32.2 % (37.0-47.0); Mean Corpuscular Hemoglobin 28.8 pg (25.0-34.0); Mean Corpuscular Hgb Conc 34.2 g/dL (32.0-36.0); Mean Corpuscular Volume 84.3 fL (80.0-100.0); Mean Platelet Volume 12.1 fL (9.4-12.4); Platelet Count 145 K/uL (130-400); RDW Coefficient of Variation 15.7 % (11.5-14.5); RDW Standard Deviation 47.6 fL (36.4-46.3); Red Blood Count 3.82 M/uL (4.20-5.40); White Blood Count 8.93 K/ul (4.8-10.8)
[2022-09-18] MEDS: LACTATED RINGER'S 1,000 ML IV PRN (20:04)
[2022-09-18] MEDS: PENICILLIN G POTASSIUM 3 MU in DEXTROSE 5% 100 ML IV PRN (23:54)
[2022-09-19] MEDS: PENICILLIN G POTASSIUM 3 MU in DEXTROSE 5% 100 ML IV PRN ×3 (04:01→12:29)
--- NOTE | 2022-09-19 07:21 | Labor Progress Brief Note ---
Date of Service September 19, 2022 Subjective Reason For Note: Routine Evaluation Assessment & Plan (1) Encounter for supervision of normal in multigravida: Plan: Priyanka is a 22-year-old presents for induction of labor secondary to worsening critical Anti-D antibody titers. findings were discussed with MFM earlier today who recommended delivery today. 1. Fetus: Cat 1 2. Labor: continue oxytocin. AROM for clear 3. vitals within normal limits. 4. GBS unknown in pre term. History of prior GBS positive. Will treat with penicillin. GBS swab collected (2) Maternal care for other isoimmunization, unspecified trimester, not applicable or unspecified: Admission and Anticipated Discharge Date Admission Date: September 18, 2022 Physical Exam Genitourinary: Manual OB Exam: + cervical dilation 2 cm, + cervical effacement 70%, + station -2 and + amniotic fluid (AROM) clear OB Exam Monitor Tracing: + external FHT monitor used, + external uterine monitor used, + category I and + normal FHT variability; no early decelerations present, no late decelerations present and no variable decelerations Results & Data Vital Signs (Past 12 Hours) Vital Signs Temp Pulse Resp BP 09/19/22 07:10 86 104/59 L 09/19/22 04:53 36.6 C 18 09/18/22 23:02 18 09/18/22 23:02 36.5 C 18 09/18/22 23:04 84 123/59 L Coding Level of Care Code None Diagnoses Encounter for supervision of normal in multigravida Z34.80 Maternal care for other isoimmunization, unspecified trimester, not applicable or unspecified O36.1990
[2022-09-19] MEDS: LACTATED RINGER'S 1,000 ML IV PRN (08:34)
--- NOTE | 2022-09-19 08:56 | Communication Note ---
Date of Service: September 19, 2022 Patient greeted in room 424, with RN Nita and support person. Sitting upright with legs dangling, pit @ 10, toco reviewed, FHT reviewed and have been reassu ring, chart to this point reviewed and signout from Dr. Maldonado received. Last cervical check within 2 hours and patient is on pit / ruptured / does not desire epidural with this labor. Patient has no needs at this time other than she is requesting permission to eat; discussed recommendation to choose light foods and liquids as emesis is common during labor, and she is agreeable to the offered items that we keep on L&D for this purpose. Continue IOL and anticipate .
[2022-09-19] MEDS ORDERED: BUPIVACAINE 0.25% PF 30 ML VIAL ONE (11:06)
[2022-09-19] MEDS ORDERED: SODIUM CHLORIDE 0.9% PF INJ 10 ML VIAL ONE (11:06)
[2022-09-19] MEDS ORDERED: fentaNYL citrate PF 100 MCG/2 ML VIAL ONE (11:06)
[2022-09-19] MEDS ORDERED: LIDOCAINE 2%/EPINEPHRINE 1:200,000 20 ML PF ONE (11:06)
[2022-09-19] MEDS ORDERED: fentaNYL 2MCG/ML ROPIVACAINE 1.25MG/ML 100 ML BAG EPI ONE (11:07)
[2022-09-19] MEDS ORDERED: ePHEDrine sulfate 50 MG/ML AMP ONE (11:07)
--- NOTE | 2022-09-19 11:27 | Labor Progress Brief Note ---
Date of Service September 19, 2022 Subjective Uncomfortable and now requesting epidural. Assessment & Plan (1) Maternal care for other isoimmunization, unspecified trimester, not applicable or unspecified: Plan: Continue induction of labor, close observation of status, discussed current progress / lack thereof and patient ready to have epidural at this time. Admission and Anticipated Discharge Date Admission Date: September 18, 2022 Physical Exam Genitourinary: FHT Cat 1 currently, has at times been Cat 2 due to minimal variability. At this time 140 mod shelia +acc +early decels [place] Q3 with Pit @ 12 2/80/-2 Results & Data Vital Signs (Past 12 Hours) Vital Signs Temp Pulse Resp BP 09/19/22 11:16 78 92/55 L 09/19/22 09:59 98.4 F 79 103/57 L 09/19/22 07:10 98.1 F 86 19 104/59 L 09/19/22 04:53 97.9 F 18 Coding Level of Care Code None Diagnoses Maternal care for other isoimmunization, unspecified trimester, not applicable or unspecified O36.1990
--- NOTE | 2022-09-19 11:56 | Anesthesiology Consultation ---
Date of Service September 19, 2022 Assessment & Plan Chart Review Chart Review: Acceptable Risk for Labor Epidural Consults Requested none History Height/Weight Height: 4 ft 11 in Weight: 59.874 kg Allergies Allergy/AdvReac Type Severity Reaction Status Date / Time No Known Allergies Allergy Verified 09/18/22 16:32 Medications Home Medications Medication Instructions Recorded Confirmed Last Taken prenat.vits,kriss,dic-gaec-lzapo 1 tab PO DAILY 12/14/20 09/18/22 12/13/20 albuterol sulfate 90 mcg/actuation 1 inh inhalation ONCE 03/16/22 09/18/22 Unknown aerosol inhaler metoclopramide HCl 5 mg tablet 5 mg PO Q6H PRN nausea and 03/16/22 09/18/22 Unknown (Reglan) vomiting #30 tabs breast pump #1 ea 07/30/22 09/18/22 Unknown Active Medications Generic Name Dose Route Start Last Admin Trade Name Freq PRN Reason Stop Dose Admin Penicillin G Potassium 3 mu/ 106 mls @ 100 mls/hr 09/18/22 22:00 09/19/22 08:32 Dextrose IV 09/28/22 21:59 100 mls/hr Q4H PRN Administration GBS(+) Until Delivery Lactated Ringer's 1,000 mls @ 125 mls/hr 09/18/22 18:10 09/19/22 08:34 Lr IV 09/20/22 18:09 125 mls/hr .Q8H PRN Administration L&D Protocol Protocol Oxytocin 30 units in 500 mls @ 10 mls/hr 09/18/22 19:16 09/19/22 04:00 Pitocin IV 09/20/22 19:15 0.6 units/hr .Q24H PRN 10 mls/hr Labor Induction/Augmentation Titration Protocol 0.6 UNITS/HR Past Medical History Medical History Asthma Past Family History Family History (Updated 03/16/22 @ 14:54 by Mara Qureshi MD) Sister Sickle cell disease Half sister, pt notes it comes from her half sister's mom's side (pt and sister are related through dad) Grandfather (Paternal) Diabetes Denies family history of Ovarian cancer Breast cancer Colorectal cancer Past Surgical History Surgical History S/P excision of lipoma Social History Smoking Status: Never smoker Do You Dip or Chew Tobacco: No Hx Alcohol Use: No Hx Substance Use: No Physical Exam Vital Signs Last Vital Signs Temp 36.9 C 09/19/22 09:59 Pulse 72 09/19/22 11:54 Resp 19 09/19/22 07:10 BP 114/54 L 09/19/22 11:54 Pulse Ox 98 09/19/22 11:50 Testing Laboratory Results 09/18/22 19:01 Blood Type O Negative 09/18/22 19:01 Antibody Screen POSITIVE A 09/18/22 19:01
[2022-09-19] MEDS ORDERED: NALOXONE HCL 1 MG in SODIUM CHLORIDE 0.9% 1000ML 1,000 ML IV PRN (12:00)
[2022-09-19] MEDS ORDERED: fentaNYL citrate PF 100 MCG/2 ML VIAL EPI STA (12:00)
[2022-09-19] MEDS ORDERED: fentaNYL 2MCG/ML ROPIVACAINE 1.25MG/ML 100 ML BAG EPI PRN (12:00)
[2022-09-19] MEDS ORDERED: BUPIVACAINE 0.25% PF 30 ML VIAL EPI PRN (12:00)
[2022-09-19] MEDS ORDERED: LIDOCAINE 2% MPF LOCAL 5 ML VIAL EPI PRN (12:00)
[2022-09-19] MEDS ORDERED: NALBUPHINE HCL INJ 10 MG/ML AMP IV PRN (12:00)
[2022-09-19] MEDS ORDERED: LIDOCAINE 2%/EPINEPHRINE 1:200,000 20 ML PF EPI STA (12:00)
[2022-09-19] MEDS ORDERED: fentaNYL citrate PF 100 MCG/2 ML VIAL EPI PRN (12:00)
[2022-09-19] MEDS ORDERED: BUPIVACAINE 0.25% PF 30 ML VIAL EPI STA (12:00)
[2022-09-19] MEDS ORDERED: SODIUM CHLORIDE 0.9% PF INJ 10 ML VIAL EPI PRN (12:00)
[2022-09-19] MEDS ORDERED: NALOXONE HCL 0.4 MG/1 ML VIAL/CARP IV PRN (12:00)
[2022-09-19] MEDS ORDERED: diphenhydrAMINE 50 MG/ML VIAL IV PRN (12:00)
[2022-09-19] MEDS ORDERED: ROPIVACAINE 0.5% PF 5 MG/ML 20 ML VIAL EPI PRN (12:00)
[2022-09-19] MEDS ORDERED: SODIUM CHLORIDE 0.9% PF INJ 10 ML VIAL EPI STA (12:00)
[2022-09-19] MEDS ORDERED: ePHEDrine sulfate 50 MG/ML AMP IV PRN (12:00)
--- NOTE | 2022-09-19 14:30 | Labor Progress Brief Note ---
Date of Service September 19, 2022 Subjective Comfortable with epidural Assessment & Plan (1) Maternal care for other isoimmunization, unspecified trimester, not applicable or unspecified: Plan: Progressing towards delivery, continue current mgmt with close obs. Admission and Anticipated Discharge Date Admission Date: September 18, 2022 Physical Exam Genitourinary: 5/100/0 Clear fluid FHT Cat 1 (150 mod shelia with no accels and + early decels) [place] Q4-5 Results & Data Vital Signs (Past 12 Hours) Vital Signs Temp Pulse Resp BP Pulse Ox 09/19/22 14:27 100 H 105/57 L 09/19/22 14:25 107 H 100 09/19/22 14:20 102 H 98 09/19/22 14:16 94 H 110/60 09/19/22 14:15 102 H 95 09/19/22 14:10 85 97 09/19/22 14:07 74 110/54 L 09/19/22 14:05 80 97 09/19/22 14:00 74 97 09/19/22 13:55 89 97 09/19/22 13:56 88 103/57 L 09/19/22 13:50 85 97 09/19/22 13:46 99 H 110/71 09/19/22 13:45 76 97 09/19/22 13:40 81 98 09/19/22 13:36 81 108/55 L 09/19/22 13:35 80 98 09/19/22 13:30 88 98 09/19/22 13:27 72 109/55 L 09/19/22 13:25 76 97 09/19/22 13:20 82 98 09/19/22 13:15 94 H 98 09/19/22 13:16 110/59 L 09/19/22 13:13 87 92 09/19/22 13:10 107 H 98 09/19/22 13:08 80 108/55 L 09/19/22 13:05 94 H 100 09/19/22 13:00 99 H 96 09/19/22 12:59 95 H 87/53 L 09/19/22 12:55 100 H 96 09/19/22 12:56 95 H 83/43 L 09/19/22 12:54 97 H 89/45 L 09/19/22 12:51 115 H 83/45 L 09/19/22 12:50 94 H 96 09/19/22 12:45 90 96 09/19/22 12:46 85 83/45 L 09/19/22 12:40 92 H 96 09/19/22 12:36 91 H 91/50 L 09/19/22 12:35 88 97 09/19/22 12:30 92 H 96 09/19/22 12:25 108 H 97 09/19/22 12:20 116 H 99 09/19/22 12:19 92 H 94/44 L 09/19/22 12:15 102 H 98 09/19/22 12:10 94 H 97 09/19/22 12:07 97 H 109/58 L 09/19/22 12:05 88 98 09/19/22 12:00 102 H 98 09/19/22 11:55 102 H 100 09/19/22 11:54 72 114/54 L 09/19/22 11:52 88 77/42 L 09/19/22 11:50 89 98 09/19/22 11:49 108 H 92/55 L 09/19/22 11:47 81 92/50 L 09/19/22 11:45 94 H 87/51 L 99 09/19/22 11:43 94 H 88/55 L 09/19/22 11:41 78 95/51 L 09/19/22 11:40 85 99 09/19/22 11:39 78 89/48 L 09/19/22 11:37 80 94/53 L 09/19/22 11:35 89 100 09/19/22 11:30 80 100 09/19/22 11:25 79 99 09/19/22 11:16 78 92/55 L 09/19/22 09:59 98.4 F 79 103/57 L 09/19/22 07:10 98.1 F 86 19 104/59 L 09/19/22 04:53 97.9 F 18 Coding Level of Care Code None Diagnoses Maternal care for other isoimmunization, unspecified trimester, not applicable or unspecified O36.1990
--- NOTE | 2022-09-19 16:40 | Delivery Summary ---
Vaginal Delivery Summary Date of Service September 19, 2022 Vaginal Delivery Summary DIAGNOSES: 1. Jenkins intrauterine at 36w4d gestation. 2. Induction of Labor due to Anti-D Isoimmunization at Critical Titers. 3. Group B Streptococcus Unknown / Treated. PROCEDURE: Spontaneous vaginal delivery without laceration. SURGEON: Corrie White MD. STEAK SAUCE MAKER: None. ESTIMATED BLOOD LOSS: 250 mL. COMPLICATIONS: None. PLACENTA: Spontaneous and intact with a 3-vessel cord. DISPOSITION: Stable to labor and delivery. DESCRIPTION: The patient pushed well and brought the head to in OA position. The infant's head was allowed to deliver with contraction force and no further active pushing, with the perineum protected during this time. There was no nuchal cord. The shoulders and body delivered without any difficulty, and the infant was placed on the maternal abdomen. It was vigorous and moving all extremities, and making respiratory efforts. The cord was doubly clamped by the MD and then cut by the FOB. The placenta delivered spontaneously and was noted to be intact and with a 3VC. The cervix, vagina and perineum were examined and were found to be without defect requiring repair. The fundus was firm and lochia minimal immediately after delivery. [facility] Vaginal Delivery Charge Vaginal Delivery Codes: 20553 global code for the antepartum, delivery, and post-
[2022-09-19] MEDS ORDERED: DIPHTHERIA/TETANUS/PERTUSSIS 0.5mL SYR/VIAL (Age 7+yrs) IM ONE (17:07)
[2022-09-19] MEDS ORDERED: BENZOCAINE 20% AER SPR 82.5 GM CAN EXT PRN (17:07)
[2022-09-19] MEDS ORDERED: OXYTOCIN 30 UNITS/500 ML BAG IV PRN (17:07)
[2022-09-19] MEDS ORDERED: bisacodyL 10 MG SUPP PR PRN (17:07)
[2022-09-19] MEDS ORDERED: HYDROCORTISONE ACETATE 25 MG SUPP PR PRN (17:07)
[2022-09-19] MEDS ORDERED: IBUPROFEN 600 MG TAB PO PRN (17:07)
[2022-09-19] MEDS ORDERED: ALBUTEROL HFA 8 GM INHALER INH PRN (17:07)
[2022-09-19] MEDS ORDERED: ACETAMINOPHEN 325 MG TAB PO PRN (17:07)
[2022-09-19] MEDS ORDERED: ONDANSETRON INJ 2 MG/ML 2 ML VIAL ONE (17:38)
--- NOTE | 2022-09-19 18:44 | Anesthesia Procedure Note ---
Date of Service September 19, 2022 Anesthesia Post Epidural Note Vital Signs Vital Signs: Temp Pulse Resp BP Pulse Ox 37.0 C 120 H 20 122/63 100 09/19/22 16:52 09/19/22 17:33 09/19/22 16:52 09/19/22 17:33 09/19/22 16:25 Pain Intensity Abdomen: Pain Intensity: 8 Notes Mental Status: alert / awake / arousable Nausea / Vomiting: adequately controlled Pain: adequately controlled Airway Patency, RR, SpO2: stable & adequate BP & HR: stable & adequate Hydration State: stable & adequate Neuraxial Anesthesia: was administered and sensory block is resolving Anesthetic Complications: no major complications apparent and Pt Satisfied with anesthetic care Epidural: Removed without complications and With tip intact
[2022-09-19] MEDS ORDERED: DOCUSATE SODIUM 100 MG CAP PO SCH (21:00)
[2022-09-20] MEDS ORDERED: PRENATAL VITAMIN 1 TAB PO SCH (08:00)
[2022-09-20] MEDS ORDERED: bisacodyL 5 MG TABEC PO SCH (20:00)
== END 2022-09-20 06:03 | disposition home or self-care (01) | DRG 807 ==
LOC: 4S1 18:00 → 4E2 09-19 19:25